=== PATIENT | female | born 1990 | race Caucasian/White ===

== ENCOUNTER 2018-07-26 12:09 | Observation (INO) | payer SELFPAY ==
--- NOTE | 2018-07-22 09:40 | PDGENHP ---
History and Physical History and Physical: Assessment and Plan: 1. Mid cycle pain Nani's symptoms and exam findings are highly suggestive of pelvic endometriosis. We reviewed all conservative and surgical options. Because she wishes to conceive many of the conservative options are not appropriate. After our discussion she will continue to attempt . However if the pain continues to worsen or if she is unable to have intercourse during ovulation then she will call us to schedule a robotic excision of endometriosis and excision of her ovarian cyst. 2. Dysmenorrhea 3. Dyspareunia, female 4. Cysts of both ovaries Subjective: Patient ID: Nani Damon is a 27 y.o. female who presents to [facility] for pelvic pain. MAY Cardoza is a 27-year-old para 2 woman who lives in [place]. She has had pelvic pain since the of her child 2 years ago. She has low-grade pain on a daily basis. Her pain then becomes severe around the time of ovulation. The pain is central in her pelvis and radiates around to her back and occasionally down her thighs. She has a similar but slightly less intense episode at the time of her menses. She has deep dyspareunia which again is a similar area. She and her have been attempting however it is becoming more difficult since she cannot tolerate intercourse during ovulation. She has some slight dyschezia. She is constipated much of the month but develops diarrhea during ovulation and menses. She has undergone 3 colonoscopies all of which have been reportedly normal. He has been diagnosed with irritable bowel syndrome. She has had unprotected intercourse since August. Her cycles are regular about every 28 days with normal flow. Her last pelvic ultrasound was about a year ago and showed bilateral simple ovarian cyst about 5 cm in size. She and her are bloggers. 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 MAGNESIUM PO omeprazole (PRILOSEC) 40 mg capsule Take 40 mg by mouth daily. No current facility-administered medications for this visit. ALLERGIES: Patient has no known allergies. I have reviewed, verified and agree with the past medical, surgical, , family, social and ROS history as documented by the RN today. Objective: Vital Signs: Visit Vitals BP 106/68 Pulse 80 Temp 37.3 C (99.2 F) (Temporal Artery) Resp 16 Ht 1.651 m (5' 5") Wt 79.6 kg (175 lb 6.4 oz) SpO2 99% BMI 29.19 kg/m Physical Exam Gen: This is an alert, well developed woman in no distress. Neuro: She moves all extremities. Psych: She is appropriate, oriented, with normal affect. Neck: No thyroid enlargement, adenopathy, or tenderness. Lungs: Clear to ascultation, no wheezes or rales. Heart: Regular rate and rhythm without obvious murmurs. Abdomen: Soft, non-tender, without guarding, rebound, or masses. Extremities: No edema or cyanosis. Pelvic: Normal external genitalia. Non-gaping introitus, vagina without discharge, adequately estrogenized, no significant prolapse. Cervix without lesions or discharge. Uterus normal sized, minimal mobility. She is tender surrounding the cervix. She has thickening of the posterior cervix near the uterosacral ligaments. This is exquisitely tender. The posterior cul-de-sac is tender. Adnexa non-tender without enlargement. DATA: I have reviewed the pertinent medical records. PELVIC ULTRASOUND Indication: Pelvic pain. Findings: The uterus is mid position and measures 10.3 x 4.5 x 7.5 cm. The endometrium measures 15 mm. No uterine abnormalities are seen. The left ovary contains 2 simple appearing cyst. A larger posterior cyst measures 3.3 cm. A smaller simple cyst measures 2.6 anteriorly. She has a right-sided simple cyst measuring 4.7 x 4.3 cm. There is no obvious evidence of adhesive disease. Impression: Bilateral ovarian cysts at least 2 of which appears to be simple. Tender gynecologic organs with minimal uterine mobility. TIME/COMMUNICATION: I personally spent a total of 50 minutes. Of that 40 minutes was counseling/ coordination of patient's care. See my note above for details. Constantine Llamas MD Board Certified Female Pelvic Medicine and Reconstructive Surgery Director of Minimally Invasive Gynecologic Surgery, [facility] Surgeon in Minimally Invasive Gynecologic Surgery [facility] Surgeon in Robotic Surgery
[2018-07-26] MEDS ORDERED: PHENAZOPYRIDINE HCL 200 MG TAB PO ONE (12:18)
[2018-07-26] MEDS ORDERED: ACETAMINOPHEN 500 MG TAB PO ONE (12:18)
[2018-07-26] MEDS ORDERED: GABAPENTIN 300 MG CAP PO ONE (12:18)
[2018-07-26] MEDS ORDERED: ceFAZolin 2 GM/DEXTROSE 100 ML IV ONE (12:18)
[2018-07-26] MEDS ORDERED: LIDOCAINE 1% 2 ML INJ ID PRN (12:23)
[2018-07-26] MEDS ORDERED: LR 1,000 ML IV ONE (12:23)
--- NOTE | 2018-07-26 13:52 | PDHPUP ---
History & Physical Update H&P update statement: This history and physical update is based on an assessment of the patient which was completed after admission or registration (within 24 hours), but prior to the surgery/procedure. H&P update: H&P reviewed & patient examined, no change in patient's condition since H&P completed
[2018-07-26] MEDS ORDERED: MIDAZOLAM 2 MG/2 ML VIAL IVP ONE (14:03)
--- NOTE | 2018-07-26 14:03 | PDANEPAE ---
ANE Past Medical History - Cardiovascular History Hx Hypertension: No Hx Arrhythmias: No Hx Chest Pain: No Hx Coronary Artery / Peripheral Vascular Disease: No Hx CHF / Valvular Disease: No Hx Palpitations: No - Pulmonary History Hx COPD: No Hx Asthma/Reactive Airway Disease: No Hx Recent Upper Respiratory Infection: No Hx Oxygen in Use at Home: No Hx Sleep Apnea: No Sleep Apnea Screening Result - Last Documented: Negative - Neurologic History Hx Cerebrovascular Accident: No Hx Seizures: No Hx Dementia: No Neurologic History Comment: MIGRAINES - Endocrine History Hx Diabetes: No - Renal History Hx Renal Disorders: No Renal History Comment: FREQUENT UTIs - Liver History Hx Hepatic Disorders: No - Neurological & Psychiatric Hx Hx Neurological and Psychiatric Disorders: No - Cancer History Hx Cancer: No - Congenital Disorder History Hx Congenital Disorders: No - GI History Hx Gastrointestinal Disorders: Yes Gastrointestinal History Comment: GERD. IBS - Other Health History Other Health History: ANEMIA W/. ENDOMETRIOSIS - Chronic Pain History Chronic Pain: Yes (ABD PAIN & BACK) - Surgical History Prior Surgeries: WISDOM TEETH. COLONOSCOPIES ANE Review of Systems Review of Systems: - Exercise capacity METS (RN): 5 METS ANE Patient History - Allergies Allergies/Adverse Reactions: metoclopramide [From Reglan] Allergy (Verified 06/26/18 14:35) "SPACEY & OUT OF IT" FEELING - Home Medications Home Medications: Herbals/Supplements -Info Only 06/26/18 [Last Taken 07/18/18] Ibuprofen 06/26/18 [Last Taken 07/18/18] Omeprazole 06/26/18 [Last Taken 07/24/18] - NPO status NPO Since - Liquids (Date): 07/26/18 NPO Since - Liquids (Time): 11:00 NPO Since - Solids (Date): 07/25/18 NPO Since - Solids (Time): 18:00 - Smoking Hx Smoking Status: Never smoked - Family Anes Hx Family Hx Anesthesia Complications: NEG ANE Labs/Vital Signs - Vital Signs Blood Pressure: 127/72 Heart Rate: 89 Respiratory Rate: 16 O2 Sat (%): 99 Height: 165.1 cm Weight: 77.111 kg ANE Physical Exam - Airway Neck exam: FROM Mallampati Score: Class 1 Mouth exam: normal dental/mouth exam - Pulmonary Pulmonary: no respiratory distress - Cardiovascular Cardiovascular: regular rate and rhythym - ASA Status ASA Status: II ANE Anesthesia Plan Anesthesia Plan: general endotracheal anesthesia Total IV Anesthesia: Yes
[2018-07-26] MEDS ORDERED: HYDROmorphONE/DILAUDID 2 MG/ML INJ ONE (14:20)
[2018-07-26] MEDS ORDERED: PROPOFOL 200 MG/20 ML VIAL ONE (14:20)
[2018-07-26] MEDS ORDERED: KETOROLAC 30 MG/1 ML SDV ONE (14:21)
[2018-07-26] MEDS ORDERED: ONDANSETRON 4 MG/2 ML VIAL ONE ×2 (14:21→16:21)
[2018-07-26] MEDS ORDERED: ROCURONIUM 50 MG/5 ML VIAL ONE (14:21)
[2018-07-26] MEDS ORDERED: LIDOCAINE 2% 100 MG/5 ML SYR ONE (14:21)
[2018-07-26] MEDS ORDERED: BUPIVACAINE/EPI 0.5% 30 ML SDV ONE (14:40)
[2018-07-26] MEDS ORDERED: NALOXONE HCL 0.4 MG/ML INJ IVP PRN (15:03)
[2018-07-26] MEDS ORDERED: HYDROmorphONE/DILAUDID 2 MG/ML INJ IVP PRN (15:03)
[2018-07-26] MEDS ORDERED: fentaNYL 100 MCG/2 ML INJ IVP PRN (15:03)
[2018-07-26] MEDS ORDERED: HYDROCODONE/APAP 5/325 TAB PO PRN (15:03)
[2018-07-26] MEDS ORDERED: MEPERIDINE 25 MG/0.5 ML AMP IVP PRN (15:03)
[2018-07-26] MEDS ORDERED: ONDANSETRON 4 MG/2 ML VIAL IVP PRN ×2 (15:03→19:13)
[2018-07-26] MEDS ORDERED: PROMETHAZINE HCL 25 MG/ML INJ IVP PRN ×2 (15:03→21:10)
[2018-07-26] MEDS ORDERED: oxyCODONE IR 5 MG TAB PO PRN (15:03)
[2018-07-26] MEDS ORDERED: ACETAMINOPHEN 500 MG TAB PO PRN (15:03)
[2018-07-26] MEDS ORDERED: ALBUTEROL 3 ML DEYVIAL IH PRN (15:03)
[2018-07-26] MEDS ORDERED: DIAZEPAM 5 MG/ML 1 ML SYR IVP PRN (15:03)
[2018-07-26] MEDS ORDERED: NEOSTIGMINE METHYLSULFATE 5 MG/5 ML SYR ONE (15:29)
[2018-07-26] MEDS ORDERED: GLYCOPYRROLATE 0.2 MG/1 ML VIAL ONE ×2 (15:29)
--- NOTE | 2018-07-26 15:46 | POSTOPPROG ---
Post Op Note Date of Operation: 07/26/18 Surgeon: Constantine Llamas Application Packaging Specialist: Sheyla Taylor Anesthesiologist: Camilo Bellamy Anesthesia: GET(General Endotracheal) Pre-op Diagnosis: Endometriosis Post-op Diagnosis: Same Procedure: Robotic excision of endo, bilat ureterolysis and ovarian pexy Findings: Endo Inf/Abcess present in the surg proc area at time of surgery?: No EBL: Minimal Complications: None
--- NOTE | 2018-07-26 16:06 | POSTANESTH ---
Post Anesthetic Evaluation Cardiovascular Status: Similar to Pre-Op Cond Respiratory Status: Similar to Pre-op Cond. Level of Consciousness/Mental Status: Mildly Sleepy, Arousable Pain Control: Adequate, Prn Tx Ordered Nausea/Vomiting Control: Adequate, Prn Tx Ordered Complications Possibly Related to Anesthesia: None Noted
[2018-07-26] MEDS ORDERED: PROMETHAZINE HCL 25 MG/ML INJ ONE (16:56)
--- NOTE | 2018-07-26 16:58 | GOP ---
DATE OF OPERATION: 07/26/2018 SURGEON: Constantine Llamas MD BOILER MECHANIC: Sheyla Taylor CFA ANESTHESIA: General. PREOPERATIVE DIAGNOSIS: 1. Dysmenorrhea. 2. Endometriosis. 3. Cyclic pelvic pain. 4. Bilateral ovarian cysts. POSTOPERATIVE DIAGNOSIS: 1. Dysmenorrhea. 2. Endometriosis. 3. Cyclic pelvic pain. 4. Bilateral ovarian cysts. PROCEDURE PERFORMED: 1. Robotic excision of endometriosis in anterior and posterior cul-de-sac and bilateral ovarian antonia ae. 2. Bilateral ureterolysis. 3. Bilateral ovariopexy. 4. Bilateral ovarian cystectomies. FINDINGS: SPECIMENS: Pelvic peritoneum with endometriosis. ESTIMATED BLOOD LOSS: Scant. DESCRIPTION OF PROCEDURE: The patient was taken to the operating room where she was identified. Gen eral anesthesia was administered and found to be adequate. She was placed in a lithotomy position an d prepared and draped in normal sterile fashion. A Hulka tenaculum was placed in the uterus for jaylene pulation. A Gdooy catheter was then placed. A 1 cm infraumbilical incision was made with a scalpel. The Veress needle with the CO2 gas flowing w as advanced into the peritoneal cavity. The abdomen was then insufflated with carbon dioxide gas. T he 12 mm trocar, followed by the laparoscope were then inserted. The upper abdomen was unremarkable. There was no evidence of endometriosis on either diaphragm, liver, stomach, or bowel. 2 lateral po rts placed on the right and 1 on the left under direct visualization. She then was placed in [place] position and the da Nitish robot docked on the left side. The instruments were then brought in to the abdominal cavity under direct visualization. The patient was found to have endometriosis in the anterior and posterior cul-de-sacs and bilateral o varian fossae overlying both ureters, as well as along the uterosacral ligaments. The entire anterio r cul-de-sac peritoneum was then completely excised. She also had bilateral ovarian cysts. These we re simple cysts, which were complete completely excised and sent to Pathology. A bilateral ovariopexy was then performed by attaching the each ovary to the ipsilateral round ligame nts near the internal inguinal ring with 3-0 Vicryl Rapide suture. The posterior cul-de-sac peritone um from the distal rectum up to the cervix and laterally to the uterosacral ligaments was then excise d. A bilateral ureterolysis was required given the endometriosis overlying both ureters. The perito neum at the pelvic brims was incised. The ureters were gently dissected free and lateralized off the overlying peritoneum and the endometriosis from the pelvic brim down to the uterine arteries. Once this was accomplished, the entire ovarian fossa peritoneum was completely excised bilaterally and sen t to Pathology. The pelvis was then irrigated with sterile saline and hemostasis was present. The fascia was closed with 0 Vicryl, the skin with 4-0 Monocryl and Steri-Strips. Anesthesia was then reversed. Patient t aken the PACU awake, in stable condition. COMPLICATIONS: None. DISPOSITION: Patient stable to PACU. /[id number]/MODL
[2018-07-26] MEDS ORDERED: oxyCODONE IR 5 MG TAB ONE (18:00)
[2018-07-26] MEDS ORDERED: HYDROmorphONE/DILAUDID 1 MG/ML INJ IVP PRN (19:13)
[2018-07-26] MEDS ORDERED: SIMETHICONE 80 MG TAB CHEW PO PRN (21:10)
[2018-07-26] MEDS ORDERED: LR 1,000 ML IV SCH (22:00)
[2018-07-26] MEDS: GABAPENTIN 300 MG CAP PO SCH (23:15)
[2018-07-26] MEDS: KETOROLAC 30 MG/1 ML SDV IVP SCH (23:16)
[2018-07-27 03:59] VITALS: BP 93/57
[2018-07-27] MEDS ORDERED: PANTOPRAZOLE SODIUM 40 MG TAB PO SCH (05:45)
[2018-07-27] MEDS: KETOROLAC 30 MG/1 ML SDV IVP SCH ×2 (05:48→11:30)
[2018-07-27] MEDS: OXYCODONE/APAP 5/325 TAB PO PRN ×2 (05:49→08:11)
[2018-07-27] MEDS: GABAPENTIN 300 MG CAP PO SCH (08:10)
[2018-07-27] MEDS ORDERED: ONDANSETRON DISINTEGRATING 4 MG TAB PO PRN (10:54)
--- NOTE | 2018-07-27 11:48 | GDS ---
DISCHARGE DIAGNOSES: 1. Endometriosis. 2. Dysmenorrhea. POSTOPERATIVE DIAGNOSES: 1. Endometriosis. 2. Dysmenorrhea. PROCEDURES: 1. Robotic excision of extensive endometriosis. 2. Bilateral ureterolysis. 3. Bilateral ovarian pexy. HOSPITAL COURSE: The patient is a 27-year-old female, with painful menses. She was taken to the ope rating room on 07/26/2018, where she underwent excision of endometriosis. Her postoperative course was uneventful. The morning after surgery she was ambulating, voiding, and tolerating a general diet. She was discharged home on postoperative day #1 in good condition. MEDICATIONS: Included Percocet and ibuprofen for pain. FOLLOWUP: She was to follow up in the office 2 weeks after discharge. /[id number]/MODL
== END 2018-07-27 12:45 | disposition home or self-care (01) ==
LOC: FSGY 12:09 → F3E 18:59 → FOB 20:00
PROVIDERS: ADMIT Obstetrics & Gynecology; ATTEND Obstetrics & Gynecology
DX: N80.3 Endometriosis of pelvic peritoneum (principal); N80.1 Endometriosis of ovary; D27.0 Benign neoplasm of right ovary; D27.1 Benign neoplasm of left ovary; R10.2 Pelvic and perineal pain; N94.6 Dysmenorrhea, unspecified; N94.12 Deep dyspareunia; N94.0 Mittelschmerz; K58.1 Irritable bowel syndrome with constipation; Z87.440 Personal history of urinary (tract) infections
CPT/HCPCS: G0378; J0690; J1170; J1885; J2001; J2250; J2405; J2550; J2704; J2710